=== PATIENT | female | born 1945 | race Caucasian/White ===

== ENCOUNTER → 2018-03-08 | Outpatient (CLI) | payer MEDICARE, OTHER | END | disposition home or self-care (01) | LOC: CFH 09:09 | PROVIDERS: ATTEND Internal Medicine Gastroenterology | DX: R19.00 Intra-abdominal and pelvic swelling, mass and lump, unspecified site (principal); R94.5 Abnormal results of liver function studies | CPT/HCPCS: 74176 ==